=== PATIENT | male | born 1990 | race Caucasian/White ===

== ENCOUNTER 2017-02-07 02:08 | Emergency (ER) | payer OTHER ==
[~2017-02-07 02:08] MED LIST: HTN; [UNRECOGNIZED DRUG - REMARK]
== END 2017-02-07 02:35 | disposition home or self-care (01) ==
LOC: SED 02:08
DX: S00.551A Superficial foreign body of lip, initial encounter (principal); L08.9 Local infection of the skin and subcutaneous tissue, unspecified; I10 Essential (primary) hypertension; W45.8XXA Other foreign body or object entering through skin, initial encounter; Y92.9 Unspecified place or not applicable
CPT/HCPCS: 99282; 99283